=== PATIENT | male | born 1995 | race Caucasian/White ===

== ENCOUNTER 2017-06-25 22:42 | Emergency (ER) | payer BC, OTHER ==
--- NOTE | 2017-06-25 22:58 | EDM.PDOC ---
ED HPI GENERAL MEDICAL PROBLEM - General Chief Complaint: Lower Extremity Injury/Pain Stated Complaint: PAIN LT KNEE Time Seen by Provider: 06/25/17 22:48 - History of Present Illness INITIAL COMMENTS - FREE TEXT/NARRATIVE: HISTORY AND PHYSICAL: History of present illness: The patient is a healthy 21-year-old male with no stated medical problems was in his usual state of good health without any systemic complaints when he slipped at work and fell onto his butt and dropped a 60 pound valve his metal onto his left medial knee. He did not his head pass out or black out and has no head neck or back pain and no pain at his pelvis or buttocks. He complains only of pain at the medial left knee. He has no distal leg ankle or foot pain and no proximal hip pain. He took Aleve prior to coming here. He has no numbness or tingling in the leg. There is pain with movement of the knee. Review of systems: As per history of present illness and below otherwise all systems reviewed and negative. Past medical history: As per history of present illness and as reviewed below otherwise noncontributory. Surgical history: As per history of present illness and as reviewed below otherwise noncontributory. Social history: No reported history of drug or alcohol abuse. Family history: As per history of present illness and as reviewed below otherwise noncontributory. Physical exam: Gen.: Well-developed well-nourished man who is nontoxic and vital signs are reviewed by me HEENT: Atraumatic, normocephalic, negative for conjunctival pallor or scleral icterus, mucous membranes moist, throat clear, neck supple, nontender, trachea midline. Lungs: Clear to auscultation, breath sounds equal bilaterally, chest nontender. Heart: S1S2, regular rate and rhythm no overt murmurs Abdomen: Soft, nondistended, nontender. NABS Pelvis: Stable nontender. No lateral hip tenderness on the left Genitourinary: Deferred. Rectal: Deferred. Extremities: Atraumatic appearing throughout all extremities including the left knee where there is no visible ecchymosis erythema and there is only a small amount of soft tissue swelling located at this medial left knee. There are no palpable bony deformities at the patella the proximal tib-fib or the distal femur area. There is tenderness with this exam and the patient declines range of motion due to discomfort. He has no distal ankle or foot tenderness and no proximal femur or hip tenderness. The legs are, negative for cords or calf pain. Neurovascular unremarkable. Neuro: Awake, alert, oriented. Motor and sensory unremarkable throughout. Exam nonfocal. Back: There are no midline step-offs tenderness defects of the thoracic or lumbar spine and no specific tenderness at the sacrum and coccyx area of the posterior pelvis Diagnostics: X-ray left knee Therapeutics: Crutches Robe bandage/neoprene Impression: Left knee injury/contusion status post blunt trauma Definitive disposition and diagnosis as appropriate pending reevaluation and review of above. left knee Pain Score (Numeric/FACES): 8 - Related Data Allergies Allergy/AdvReac Type Severity Reaction Status Date / Time No Known Allergies Allergy Verified 06/25/17 22:46 Home Meds: Home Meds . [No Known Home Meds] 06/25/17 [History] Review of Systems - Review of Systems Review Of Systems: ROS reveals no pertinent complaints other than HPI. ED EXAM, GENERAL - Physical Exam Exam: See Below (See dictation) Course - Vital Signs Last Recorded V/S: Last Vital Signs Temp 36.6 C 06/25/17 22:42 Pulse 83 06/25/17 22:42 Resp 18 06/25/17 22:42 BP 128/81 06/25/17 22:42 Pulse Ox 100 06/25/17 22:42 - Orders/Labs/Meds Orders: Active Orders 24 hr Category Date Time Status Knee 3V Lt [CR] Stat Exams 06/25/17 22:54 Taken DME for Discharge [COMM] Stat Oth 06/25/17 23:21 Ordered Departure - Departure Time of Disposition: 23:23 Disposition: Home, Self-Care 01 Condition: Good Clinical Impression: Left knee injury Qualifiers: Encounter type: initial encounter Qualified Code(s): S89.92XA - Unspecified injury of left lower leg, initial encounter Contusion of left knee Qualifiers: Encounter type: initial encounter Qualified Code(s): S80.02XA - Contusion of left knee, initial encounter - Discharge Information Referrals: PCP,None [Primary Care Provider] - Forms: ED Department Discharge Additional Instructions: The following information is given to patients seen in the emergency department who are being discharged to home. This information is to outline your options for follow-up care. We provide all patients seen in our emergency department with a follow-up referral. The need for follow-up, as well as the timing and circumstances, are variable depending upon the specifics of your emergency department visit. If you don't have a primary care physician on staff, we will provide you with a referral. We always advise you to contact your personal physician following an emergency department visit to inform them of the circumstance of the visit and for follow-up with them and/or the need for any referrals to a consulting specialist. The emergency department will also refer you to a specialist when appropriate. This referral assures that you have the opportunity for followup care with a specialist. All of these measure are taken in an effort to provide you with optimal care, which includes your followup. Under all circumstances we always encourage you to contact your private physician who remains a resource for coordinating your care. When calling for followup care, please make the office aware that this follow-up is from your recent emergency room visit. If for any reason you are refused follow-up, please contact the [facility] emergency department at and ask to speak to the emergency department charge nurse. [facility]--[place] [address] Use [id number] Tylenol and ibuprofen for pain and ice to area for the next 24 hours. Use crutches and Robe/brace for support and to reduce swelling. Please do not weight-bear the next 3-5 days or until you are followed up by either your occupational health physician associated with your work or here with our orthopedics clinic. Return to ER as needed and as discussed - My Orders Last 24 Hours: My Active Orders 06/25/17 22:54 Knee 3V Lt [CR] Stat 06/25/17 23:21 DME for Discharge [COMM] Stat - Assessment/Plan Last 24 Hours: My Active Orders 06/25/17 22:54 Knee 3V Lt [CR] Stat 06/25/17 23:21 DME for Discharge [COMM] Stat
--- NOTE | 2017-06-26 08:28 | CR ---
EXAM DATE: 06/25/17 PATIENT'S AGE: 21 Patient: CORBY HOWARD Facility: [place], [place] Site . Site : 1995 Study: XRay Knee Left [id number]/[id number] 11:20:11 PM Ordering Physician: Emerita Patterson Final Report: INDICATION: injury, TECHNIQUE: Three views of the left knee COMPARISON: None FINDINGS: Bones: No fractures or bone lesions. Joint spaces: Unremarkable. Soft tissues: Nonspecific prepatellar soft tissue swelling. IMPRESSION: Nonspecific prepatellar soft tissue swelling. No acute bony abnormality Dictated by Milton Espana MD @ 06/25/2017 11:21:54 PM Dictated by: Milton Espana MD @ 06/25/2017 23:22:11 (Electronic Signature) Report Signed by Proxy. [email or web address]
== END 2017-06-25 23:37 | disposition home or self-care (01) ==
LOC: MW.ED 22:42
DX: S80.02XA Contusion of left knee, initial encounter (principal); W01.0XXA Fall on same level from slipping, tripping and stumbling without subsequent striking against object, initial encounter; W20.8XXA Other cause of strike by thrown, projected or falling object, initial encounter; Y92.89 Other specified places as the place of occurrence of the external cause; Y99.0 Civilian activity done for income or pay
CPT/HCPCS: 73562-26-LT; 73562-LT; 99283